=== PATIENT | female | born 1985 | race African-American/Black ===

== ENCOUNTER 2022-08-27 11:36 | Emergency (ER) | payer MEDICAID, OTHER ==
[~2022-08-27] VITALS: Ht 170.2 cm; Wt 61.2 kg
[2022-08-27 12:27] VITALS: BP 91/60
[2022-08-27] MEDS ORDERED: LIDOCAINE 1% HCL (LOCAL ANESTH.) INJ 20ML MDV ONE (12:35)
== END 2022-08-27 12:49 | disposition home or self-care (01) ==
LOC: ER 11:36
DX: S01.81XA Laceration without foreign body of other part of head, initial encounter (principal); S50.312A Abrasion of left elbow, initial encounter; Z88.0 Allergy status to penicillin; Y04.2XXA Assault by strike against or bumped into by another person, initial encounter; Y93.89 Activity, other specified; Y92.89 Other specified places as the place of occurrence of the external cause; Y99.8 Other external cause status
CPT/HCPCS: 12011; 99282; J2001